=== PATIENT | male | born 1960 | race Asian ===

== ENCOUNTER → 2017-12-09 | Day surgery (SDC) | payer OTHER ==
[~2017-12-09] VITALS: Ht 182.9 cm; Wt 78.0 kg
[~2017-12-09] MED LIST: *morphine SULFATE 4 MG/ML PERIprocedure ONLY ONE; ACETAMINOPHEN/HYDROcodone 325 MG/5 MG TAB PO PRN; CHLORHEXIDINE GLUCONATE 2 % 1 PACK (2 CLOTHS) TOPICAL PRN; CIPR500T2 PO; DEXAMETHASONE SOD PHOS 4 MG/ML VIAL IV ONE; DO NOT ADM ANY ANTICOAGULANT DRUGS PRN; GLYCOPYRROLATE 1 MG/5 ML SYRINGE IV PUSH ONE; KETOROLAC TROMETHAMINE 30 MG IV PUSH PRN; KETOROLAC TROMETHAMINE 30 MG/ML (IVP) VIAL ONE; KETOROLAC TROMETHAMINE IM PRN; LACTATED RINGER'S 1000 ML IV PRN; LIDOCAINE 1%/EPINEPHrine 1:100,000 SOLN 30 ML VIAL ONE; LIDOCAINE HCL 1% PF 5 ML SYRINGE OTHER ONE; METOPROLOL TARTRATE 25 MG TAB PO PRN; METR1TAB76 PO; NEOSTIGMINE 5 MG/5 ML SYRINGE IV PUSH ONE; ONDANSETRON HCL 4 MG/2 ML VIAL IV ONE; POVIDONE IODINE 5% (ANTISEPSIS KIT) 4 APPLICATIONS EACH NARE PRN; PROPOFOL 200 MG/20 ML AMP IV ONE; ROCURONIUM INJ 50 MG/5 ML SYRINGE IV PUSH ONE; SODIUM CHLORID 0.9% 500 ML IV PRN; SODIUM CHLORIDE 0.9% 20 ML VIAL IV ONE; TRAM50TA PO; ceFAZolin INJ 1,000 MG VIAL IV ONE
[2017-12-09 13:12] LABS: AUTOMATED NEUTROPHIL # 6.2 TH/MM3 (1.8-7.7); BASOPHIL % 0.4 % (0.0-2.0); EOSINOPHIL # 0.2 TH/MM3 (0-0.4); EOSINOPHIL % 2.6 % (0.0-4.0); HEMATOCRIT 40.1 % (39.0-51.0); HEMOGLOBIN 13.6 GM/DL (13.0-17.0); LYMPH % 17.7 % (9.0-44.0); LYMPHOCYTE # 1.6 TH/MM3 (1.0-4.8); MEAN CELL VOLUME 80.8 FL (80.0-100.0); MEAN CORPUSCULAR HEMOGLOBIN 27.4 PG (27.0-34.0); MEAN CORPUSCULAR HGB CONC 33.9 % (32.0-36.0); MEAN PLATELET VOLUME 8.3 FL (7.0-11.0); MONOCYTE # 0.8 TH/MM3 (0-0.9); NEUT % 70.3 % (16.0-70.0); PLATELET COUNT 231 TH/MM3 (150-450); RED BLOOD COUNT 4.96 MIL/MM3 (4.50-5.90); RED CELL DISTRIBUTION WIDTH 13.1 % (11.6-17.2); WHITE BLOOD COUNT 8.8 TH/MM3 (4.0-11.0)
--- NOTE | 2017-12-09 17:10 | MR ---
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 PROCEDURE PERFORMED: Fistulotomy distal to the dentate line with drainage of supralevator space. SURGEON: Richie Park MD RUNNER OUT: Lester Mariscal MD. ANESTHESIA: General. INDICATIONS FOR PROCEDURE: This is a 57-year-old who has had a recurring perirectal abscess for the last 15 years. The patient has had several external drainage procedures performed elsewhere. He had presented with increased pain and pus discharge from the perianal tissues on exam in the office and found to have a right posterior fistula opening and a chronic induration in the right supralevator space. The patient presents for exam under anesthesia to locate the internal opening of the fistula and/or appropriate surgical treatment. DESCRIPTION OF PROCEDURE: The perineal region was prepped and draped in lithotomy position on the operating table and underwent introduction of general anesthesia by endotracheal tube with muscle relaxation. Official probe was passed and the external opening extended into the supralevator space, where there was a palpable chronic abscess cavity that was approximately 3 cm in size. There was no palpable internal opening in the low rectum or in the anal canal. Milk was injected through the fistula tract to attempt to identify the internal opening, but this was not successful. The anal canal was then probed with the retractor in place, and an internal opening was identified at the dentate line in the posterior midline. It was not possible to pass the probe all the way to the external opening. With the probe in the internal opening, a fistulotomy was initiated and after approximately half the fistula was divided, it was possible to slide the probe from the external opening through the internal opening and complete the fistulotomy. Prior to fistulotomy, the muscle was assessed. There was preservation of the anorectal ring and the proximal half of the anal musculature. The redundant skin was excised. A finger was then passed through this fistula wound into the supralevator space. There was chronic fibrosis. It was necessary to cut some of the fibrosis to improve drainage to the size of the finger. The finger was passed completely into the abscess cavity. The abscess cavity was curetted. The wound was infiltrated with 1% Xylocaine with epinephrine. The fistula was transsphincteric with division of approximately 50% of the anal sphincter in the posterior position. It should be noted the patient had good anal muscle tone prior to the procedure, his contraction was only 10%. The wound was packed with Betadine soaked gauze. The patient tolerated the procedure well. Sponge and instrument counts were correct. It should be noted that a biopsy of the fistula tract was submitted to pathology. MD KRISTIN Calderón/MARIA ANTONIA , 04:34 PM , 05:08 PM MTDMaria Del Carmen
[2017-12-09 18:30] VITALS: BP 106/57; PULSE 65; RESP 18; TEMP 98.6; O2SAT 97
--- NOTE | 2017-12-10 14:01 | EKG ---
Date Performed: 12/09/2017 Time Performed: 12:23:26 PTAGE: 57 years EKG: Sinus rhythm NORMAL ECG NO PREVIOUS TRACING DOCTOR: Chelsey Lobo Interpretating Date/Time 12/10/2017 13:58:03
== END | disposition home or self-care (01) ==
LOC: HSDC 11:35
PROVIDERS: ATTEND Colon & Rectal Surgery
DX: K60.4 Rectal fistula (principal); Z01.810 Encounter for preprocedural cardiovascular examination
CPT/HCPCS: 00902; 46280; 85025; 88304; 93005; J0690; J1100; J1885; J2270; J2405; J2710; J3010; J7120